=== PATIENT | female | born 1955 | race Caucasian/White ===

== ENCOUNTER 2019-07-04 16:52 | Emergency (ER) | payer MEDICARE ==
[2019-07-04] MEDS ORDERED: ANTIVERT 25 MG PO ONE (17:15)
[2019-07-04] MEDS ORDERED: Sodium Chloride 0.9% 1000 ML 1,000 ML IV STA (17:15)
[2019-07-04] MEDS ORDERED: ANTIVERT 25 MG ONE (17:26)
[2019-07-04] MEDS ORDERED: Sodium Chloride 0.9% 1000 ML 1,000 ML ONE (17:26)
[2019-07-04 17:38] LABS: BASOPHIL % 0.4 % (0.0-0.4); Basophil (Absolute #) 0.03 (0-0.4); Eosinophil % 2.6 % (0.00-5.0); Eosinophil (Absolute #) 0.19 (0-0.5); Granulocyte Absolute (ANC) 4.56 (1.4-6.9); Granulocytes % 63.6 % (36.0-66.0); Hematocrit 48.3 % (35-47); Hemoglobin 15.2 gm/dl (12.0-16.0); Lymphocyte (Absolute #) 1.86 (1.0-4.6); Lymphocytes % 25.9 % (24.0-44.0); Mean Cell Volume 87.8 fl (78-100); Mean Corpuscular Hemoglobin 27.6 pg (26-32); Mean Corpuscular Hgb Concent. 31.5 g/dl (32-36); Mean Platelet Volume 10.1 fl (6-9.5); Monocyte (Absolute #) 0.54 (0.0-1.3); Monocytes % 7.5 % (0.0-12.0); Platelet Count 191 K/mm3 (150-450); Red Cell Distribution Width 18.8 % (11.5-14.0); White Blood Count 7.2 K/mm3 (4.0-10.5)
[2019-07-04 17:51] LABS: ALBUMIN 4.1 g/dL (3.5-5.0); ANION GAP 12.5 MEQ/L (5-15); BILIRUBIN,TOTAL 0.6 mg/dL (0.2-1.3); Calcium 8.5 mg/dL (8.4-10.2); Creatinine 1 1.04 mg/dL (0.52-1.04); Potassium 4.5 mmol/L (3.5-5.1)
[2019-07-04 19:33] LABS: Appearance SLIGHTLY CLOUDY (CLEAR); Bilirubin NEGATIVE (NEGATIVE); Blood SMALL Ery/ul (0-5); Epithelial Cells FEW /HPF (FEW); Glucose NEGATIVE (NEGATIVE); Ketones NEGATIVE (NEGATIVE); Leukocyte Esterase LARGE (NEGATIVE); Nitrite POSITIVE (NEGATIVE); Protein,Urine Dip NEGATIVE (Negative); Specific Gravity 1.008 (1.005-1.025); Urobilinogen NEGATIVE mg/dL (0-1); WBC >100 /HPF (0-5)
[2019-07-04 19:35] LABS: Budding Yeast Few /HPF (NEGATIVE)
[2019-07-04 19:44] LABS: Amphetamine,Urine NEGATIVE (NEGATIVE); Barbiturate,Urine NEGATIVE (NEGATIVE); Benzodiazepine,Urine NEGATIVE (NEGATIVE); Cocaine,Urine NEGATIVE (NEGATIVE); Methadone,Urine NEGATIVE (NEGATIVE); Opiate,Urine NEGATIVE (NEGATIVE); PCP,Urine NEGATIVE (NEGATIVE); THC,Urine NEGATIVE (NEGATIVE)
[2019-07-04] MEDS ORDERED: ROCEPHIN 1 Gm-D5w 50 ml Bag** 1 G/50 ML IVPB IV ONE (19:53)
[2019-07-04] MEDS ORDERED: Cipro 500 MG PO ONE (20:06)
[2019-07-04] MEDS ORDERED: Cipro 500 MG ONE (20:08)
--- NOTE | 2019-07-04 20:23 | ERPHSYRPT ---
- History of Present Illness Source: patient Exam Limitations: no limitations Patient Subjective Stated Complaint: pt was sent over from drs office to be seen for chest pain, she states pain was yesterday and relieved by nitro, her only co is dizziness, she states she is off balance Triage Nursing Assessment: pt arrived per WC alert, resp easy,chest clear, edema to lower legs, skin w/d/p. Physician History: Pt is a 63 y/o female that was sent to the ED by her PCP, secondary to chest pain. Pt presented to the ED, denying chest pain, but complains of dizziness, and vertigo. Pt denies palpitations, and chest discomfort. No SOB or cough, No N/V/D or abdominal pain. Pt states, that took her Meclizine 12.5 in the morning but did not have any improvement. Pt felt dizzy and that everything is moving. No other complains. Timing/Duration: today Severity: mild Modifying Factors: Improves With: rest Associated Symptoms: denies symptoms Allergies/Adverse Reactions: cephalexin [From Keflex] Allergy (Verified 07/04/19 17:38) codeine Allergy (Verified 07/04/19 17:38) erythromycin base Allergy (Verified 07/04/19 17:38) metronidazole [From Flagyl] Allergy (Verified 07/04/19 17:38) nitrofurantoin [From Macrobid] Allergy (Verified 07/04/19 17:38) Home Medications: Albuterol 2.5 mg/3 ml Neb [Proventil 2.5 mg/3 ml Neb] 3 ml QID 07/04/19 [ History] Albuterol Sulfate [Proair Hfa] 2 puff BID 07/04/19 [History] Allopurinol 300 mg [Zyloprim 300 mg] 300 mg DAILY 07/04/19 [History] Amlodipine Besylate 5 mg [Norvasc 5 mg] 5 mg DAILY 07/04/19 [History] Amoxicillin/Potassium Clav [Augmentin 500-125 Tablet] 1 ea BID 07/04/19 [History ] Calcitriol 0.25 mg DAILY 07/04/19 [History] Calcium Carb, Gluconate/Vit D2 [Parva-Harsha 500 Tablet] 1 ea DAILY 07/04/19 [ History] Carvedilol [Coreg] 25 mg DAILY 07/04/19 [History] Cetirizine HCl [Zyrtec] 10 mg DAILY 07/04/19 [History] Duloxetine HCl [Cymbalta] 60 mg DAILY 07/04/19 [History] Esomeprazole Magnesium [Nexium] 40 mg DAILY 07/04/19 [History] Fluticasone Propionate [Flovent Hfa] 12 gm DAILY 07/04/19 [History] Gabapentin 300 mg TID 07/04/19 [History] Hydroxyzine HCl 10 mg BID 07/04/19 [History] Isosorbide Mononitrate 30 mg [Imdur 30 MG] 30 mg DAILY 07/04/19 [History] Levothyroxine Sodium [Synthroid] 137 mcg DAILY 07/04/19 [History] Losartan Potassium [Cozaar] 100 mg DAILY 07/04/19 [History] Meclizine HCl 25 mg [Antivert 25 mg] 12.5 mg BID 07/04/19 [History] Montelukast Sodium 10 mg [Singulair 10 MG] 10 mg DAILY 07/04/19 [History] Multivitamin [Multi-Vitamin Daily] 1 ea DAILY 07/04/19 [History] Potassium Citrate [Potassium Citrate ER] 10 meq DAILY 07/04/19 [History] Rosuvastatin Calcium 20 mg DAILY 07/04/19 [History] Hx Influenza Vaccination/Date Given: No Hx Pneumococcal Vaccination/Date Given: No Immunizations Up to Date: Yes - Review of Systems Constitutional: Malaise, No Fever, No Chills Eyes: No Symptoms Ears, Nose, & Throat: No Symptoms Respiratory: No Cough, No Dyspnea Cardiac: No Chest Pain, No Edema, No Syncope Abdominal/Gastrointestinal: No Abdominal Pain, No Nausea, No Vomiting, No Diarrhea Genitourinary Symptoms: No Dysuria Musculoskeletal: No Back Pain, No Neck Pain Neurological: Dizziness, Vertigo - Past Medical History Pertinent Past Medical History: Yes Cardiac History: High Cholesterol, Hypertension Respiratory History: COPD, Emphysema Endocrine Medical History: Hypothyroidism Musculoskeletal History: Arthritis GI Medical History: Diverticulitis, Other Psycho-Social History: Anxiety, Depression - Past Surgical History Past Surgical History: Yes Cardiac: Cardiac Catheterization Gastrointestinal: Cholecystectomy, Colon Resection Musculoskeletal: Orthopedic Surgery Other Surgical History: left shoulder,thyroid removed - Social History Smoking Status: Current every day smoker Exposure to second hand smoke: Yes Drug Use: none Patient Lives Alone: No - Female History Hx Last Menstrual Period: post Hx Now: No - Nursing Vital Signs Nursing Vital Signs: Initial Vital Signs Temperature 97.0 F 07/04/19 16:52 Pulse Rate 79 07/04/19 16:52 Respiratory Rate 16 07/04/19 16:52 Blood Pressure 102/69 07/04/19 16:52 O2 Sat by Pulse Oximetry 94 L 07/04/19 16:52 Pain Scale Pain Intensity 0 - Physical Exam General Appearance: no apparent distress, alert Eye Exam: PERRL/EOMI, eyes nml inspection Ears, Nose, Throat Exam: normal ENT inspection, TMs normal, pharynx normal, moist mucous membranes Neck Exam: normal inspection, non-tender, supple, full range of motion Respiratory Exam: normal breath sounds, lungs clear, No respiratory distress Cardiovascular Exam: regular rate/rhythm, normal heart sounds, normal peripheral pulses Gastrointestinal/Abdomen Exam: soft, normal bowel sounds, No tenderness, No mass Back Exam: normal inspection, normal range of motion, No CVA tenderness, No vertebral tenderness Extremity Exam: normal inspection, normal range of motion, pelvis stable Neurologic Exam: alert, oriented x 3, cooperative, normal mood/affect, nml cerebellar function, nml station & gait, sensation nml, No motor deficits SpO2: 89 - Course Nursing assessment & vital signs reviewed: Yes EKG Interpreted by Me: RATE (74bpm), Sinus Rhythm, NORMAL AXIS, NORMAL QRS, NORMAL ST-T Ordered Tests: Active Orders 24 hr Category Date Time Status IV Insertion STAT Care 07/04/19 17:15 Active CBC W DIFF Stat Lab 07/04/19 17:30 Completed CMP Stat Lab 07/04/19 17:30 Completed CULTURE,URINE Stat Lab 07/04/19 19:23 Received TROPONIN Q3H Lab 07/04/19 17:30 Completed TROPONIN Q3H Lab 07/04/19 20:15 Ordered TROPONIN Q3H Lab 07/04/19 23:15 Ordered TROPONIN Q3H Lab 07/05/19 02:15 Ordered TROPONIN Q3H Lab 07/05/19 05:15 Ordered UA W/RFX UR CULTURE Stat Lab 07/04/19 19:23 Completed Urine Triage Profile Stat Lab 07/04/19 19:23 Completed Medication Summary Discontinued Medications Generic Name Dose Route Start Last Admin Trade Name Jagdish PRN Reason Stop Dose Admin Ciprofloxacin 500 mg 07/04/19 20:06 07/04/19 20:09 Cipro 500 Mg PO 07/04/19 20:07 500 mg STAT ONE Administration Ciprofloxacin Confirm 07/04/19 20:08 Cipro 500 Mg Administered 07/04/19 20:09 Dose 500 mg .ROUTE .STK-MED ONE Sodium Chloride 1,000 mls @ 999 mls/hr 07/04/19 17:15 07/04/19 18:46 Sodium Chloride 0.9% 1000 Ml IV 07/04/19 18:15 Infused .Q1H1M STA Infusion Sodium Chloride Confirm 07/04/19 17:26 Sodium Chloride 0.9% 1000 Ml Administered 07/04/19 17:27 Dose 1,000 mls @ ud .ROUTE .STK-MED ONE Ceftriaxone Sodium/Dextrose Confirm 07/04/19 19:53 Rocephin 1 Gm-D5w 50 Ml Bag Administered 07/04/19 19:54 Dose 1 g in 50 mls @ ud IV .STK-MED ONE Meclizine HCl 25 mg 07/04/19 17:15 07/04/19 17:28 Antivert 25 Mg PO 07/04/19 17:16 25 mg STAT ONE Administration Meclizine HCl Confirm 07/04/19 17:26 Antivert 25 Mg Administered 07/04/19 17:27 Dose 25 mg .ROUTE .STK-MED ONE Lab/Rad Data: Laboratory Result Diagrams 07/04/19 17:30 07/04/19 17:30 Laboratory Results 07/04/19 07/04/19 07/04/19 Range/Units 19:23 19:23 17:30 WBC (4.0-10.5) K/mm3 RBC (4.1-5.4) M/mm3 Hgb (12.0-16.0) gm/dl Hct (35-47) % MCV (78-100) fl MCH (26-32) pg MCHC (32-36) g/dl RDW (11.5-14.0) % Plt Count (150-450) K/mm3 MPV (6-9.5) fl Gran % (36.0-66.0) % Eos # (Auto) (0-0.5) Absolute Lymphs (auto) (1.0-4.6) Absolute Monos (auto) (0.0-1.3) Lymphocytes % (24.0-44.0) % Monocytes % (0.0-12.0) % Eosinophils % (0.00-5.0) % Basophils % (0.0-0.4) % Absolute Granulocytes (1.4-6.9) Basophils # (0-0.4) Sodium (137-145) mmol/L Potassium (3.5-5.1) mmol/L Chloride (98-107) mmol/L Carbon Dioxide (22-30) mmol/L Anion Gap (5-15) MEQ/L BUN (7-17) mg/dL Creatinine (0.52-1.04) mg/dL Estimated GFR ML/MIN Glucose (74-106) mg/dL Calcium (8.4-10.2) mg/dL Total Bilirubin (0.2-1.3) mg/dL AST (14-36) U/L ALT (0-35) U/L Alkaline Phosphatase (38-126) U/L Troponin I < 0.012 (0.000-0.034) ng/mL Serum Total Protein (6.3-8.2) g/dL Albumin (3.5-5.0) g/dL Urine Color YELLOW (YELLOW) Urine Appearance SLIGHTLY CLOUDY (CLEAR) Urine pH 7.0 (5-6) Ur Specific [place] 1.008 (1.005-1.025) Urine Protein NEGATIVE (Negative) Urine Ketones NEGATIVE (NEGATIVE) Urine Blood SMALL (0-5) Jorge Luis/ul Urine Nitrite POSITIVE (NEGATIVE) Urine Bilirubin NEGATIVE (NEGATIVE) Urine Urobilinogen NEGATIVE (0-1) mg/dL Ur Leukocyte Esterase LARGE (NEGATIVE) Urine WBC (Auto) >100 (0-5) /HPF Urine RBC (Auto) 11-15 (0-2) /HPF U Epithel Cells (Auto) FEW (FEW) /HPF Urine Bacteria (Auto) NONE (NEGATIVE) /HPF Unidentified Crystals 2-5 (NEGATIVE) /HPF Urine Yeast (Budding) Few (NEGATIVE) /HPF Urine Culture Reflexed YES (NO) Urine Glucose NEGATIVE (NEGATIVE) mg/dL Urine Opiates Level NEGATIVE (NEGATIVE) Ur Methadone NEGATIVE (NEGATIVE) Urine Barbiturates NEGATIVE (NEGATIVE) Ur Phencyclidine (PCP) NEGATIVE (NEGATIVE) Urine Amphetamine NEGATIVE (NEGATIVE) U Benzodiazepine Level NEGATIVE (NEGATIVE) Urine Cocaine NEGATIVE (NEGATIVE) Urine Marijuana (THC) NEGATIVE (NEGATIVE) 07/04/19 07/04/19 Range/Units 17:30 17:30 WBC 7.2 (4.0-10.5) K/mm3 RBC 5.50 H (4.1-5.4) M/mm3 Hgb 15.2 (12.0-16.0) gm/dl Hct 48.3 H (35-47) % MCV 87.8 (78-100) fl MCH 27.6 (26-32) pg MCHC 31.5 L (32-36) g/dl RDW 18.8 H (11.5-14.0) % Plt Count 191 (150-450) K/mm3 MPV 10.1 H (6-9.5) fl Gran % 63.6 (36.0-66.0) % Eos # (Auto) 0.19 (0-0.5) Absolute Lymphs (auto) 1.86 (1.0-4.6) Absolute Monos (auto) 0.54 (0.0-1.3) Lymphocytes % 25.9 (24.0-44.0) % Monocytes % 7.5 (0.0-12.0) % Eosinophils % 2.6 (0.00-5.0) % Basophils % 0.4 (0.0-0.4) % Absolute Granulocytes 4.56 (1.4-6.9) Basophils # 0.03 (0-0.4) Sodium 140 (137-145) mmol/L Potassium 4.5 (3.5-5.1) mmol/L Chloride 105 (98-107) mmol/L Carbon Dioxide 28 (22-30) mmol/L Anion Gap 12.5 (5-15) MEQ/L BUN 17 (7-17) mg/dL Creatinine 1.04 (0.52-1.04) mg/dL Estimated GFR 57.3 ML/MIN Glucose 92 (74-106) mg/dL Calcium 8.5 (8.4-10.2) mg/dL Total Bilirubin 0.60 (0.2-1.3) mg/dL AST 41 H (14-36) U/L ALT 25 (0-35) U/L Alkaline Phosphatase 85 (38-126) U/L Troponin I (0.000-0.034) ng/mL Serum Total Protein 8.0 (6.3-8.2) g/dL Albumin 4.1 (3.5-5.0) g/dL Urine Color (YELLOW) Urine Appearance (CLEAR) Urine pH (5-6) Ur Specific [place] (1.005-1.025) Urine Protein (Negative) Urine Ketones (NEGATIVE) Urine Blood (0-5) Jorge Luis/ul Urine Nitrite (NEGATIVE) Urine Bilirubin (NEGATIVE) Urine Urobilinogen (0-1) mg/dL Ur Leukocyte Esterase (NEGATIVE) Urine WBC (Auto) (0-5) /HPF Urine RBC (Auto) (0-2) /HPF U Epithel Cells (Auto) (FEW) /HPF Urine Bacteria (Auto) (NEGATIVE) /HPF Unidentified Crystals (NEGATIVE) /HPF Urine Yeast (Budding) (NEGATIVE) /HPF Urine Culture Reflexed (NO) Urine Glucose (NEGATIVE) mg/dL Urine Opiates Level (NEGATIVE) Ur Methadone (NEGATIVE) Urine Barbiturates (NEGATIVE) Ur Phencyclidine (PCP) (NEGATIVE) Urine Amphetamine (NEGATIVE) U Benzodiazepine Level (NEGATIVE) Urine Cocaine (NEGATIVE) Urine Marijuana (THC) (NEGATIVE) - Progress Progress: improved Progress Note: 07/04/19 20:23 Pt was seen and examined. She did get a liter of IVF. Meclizine 25mg was given. Pt was feeling better and was able to ambulate. Labs were normal, but UA showed UTI. Cipro was given PO, and pt will get a prescription to continue taking for 7 days. Pt should f/u with her PCP, and keep herself well hydrated. Will see patient in: office Counseled pt/family regarding: need for follow-up - Departure Departure Disposition: Home Clinical Impression: UTI (urinary tract infection) Condition: Stable Critical Care Time: No Referrals: ELOY JEREZ [Primary Care Provider] - Additional Instructions: Finish ABX as [id number], drink plenty of fluids, and f/u with PCP. Prescriptions: Ciprofloxacin [Cipro 500 MG] 500 mg PO BIDAC #13 tablet
[2019-07-04 20:30] VITALS: BP 107/75; PULSE 94; O2SAT 97
== END 2019-07-04 20:35 | disposition home or self-care (01) ==
LOC: ED 16:52
DX: N39.0 Urinary tract infection, site not specified (principal)
CPT/HCPCS: 36000; 36415; 80053; 80307; 81001; 84484; 85025; 87086; 96360; 96374; 99284; J0696; A9270-GY

== ENCOUNTER 2019-10-15 08:04 | Emergency (ER) | payer MEDICARE ==
--- NOTE | 2019-10-15 08:58 | ERPHSYRPT ---
- History of Present Illness Time Seen by Provider: 10/15/19 08:25 Source: patient Exam Limitations: no limitations Patient Subjective Stated Complaint: PATIENT WAS IN SLEEP LAB AT [facility] AND BROUGHT OVER BY RESPIRATORY. PATIENT AND RT STATED PATIENT COMPLAINING OF BEING DIZZY WITH N/V. RT STATED PATIENT WAS ON C-PAP THROUGHOUT NOC AND 02 RAN IN 80% MOST OF NIGHT. Triage Nursing Assessment: PATIENT BROUGHT OVER BY RT. PATIENT OVERALL COLOR PALE. SKIN WARM. NO EDEMA NOTED IN BILATERAL LOWER EXTREMITIES. PATIENT WITH WHEEZES THROUGHOUT ALL LUNG GRIFFITH AND BASES. 02 RUNNING BETWEEN 88-92% WITH 02 AT 3L. PATIENT DENIES SOB. PATIENT WITH NO DEPENDENT EDEMA NOTED. CAP REFILL LESS THAN 3 SECONDS. Physician History: 63 y/o obese white female who has a h/o copd, htn, anxiety presents with sudden onset of dizziness first then n/v. pt has copd and was undergoing a sleep study last night here at hospital until this am. part of the study performed without oxygen and latter part of study with her oxygen. study completed and at time of discharge pt became dizzy then vomiting began. similar episode June 2019. tx with meclizine which helped.[pt denies head injury, denies cp, denies new soa, denies abd pain. Timing/Duration: today Severity: moderate Associated Symptoms: nausea, vomiting, other (dizziness), No abdominal pain, No shortness of breath, No chest pain Allergies/Adverse Reactions: cephalexin [From Keflex] Allergy (Verified 10/15/19 08:24) codeine Allergy (Verified 10/15/19 08:24) erythromycin base Allergy (Verified 10/15/19 08:24) metronidazole [From Flagyl] Allergy (Verified 10/15/19 08:24) nitrofurantoin [From Macrobid] Allergy (Verified 10/15/19 08:24) Home Medications: Albuterol 2.5 mg/3 ml Neb [Proventil 2.5 mg/3 ml Neb] 3 ml QID 07/04/19 [ History] Albuterol Sulfate [Proair Hfa] 2 puff BID 07/04/19 [History] Allopurinol 300 mg [Zyloprim 300 mg] 300 mg DAILY 07/04/19 [History] Amlodipine Besylate 5 mg [Norvasc 5 mg] 5 mg DAILY 07/04/19 [History] Amoxicillin/Potassium Clav [Augmentin 500-125 Tablet] 1 ea BID 07/04/19 [History ] Calcitriol 0.25 mg DAILY 07/04/19 [History] Calcium Carb, Gluconate/Vit D2 [Parva-Harsha 500 Tablet] 1 ea DAILY 07/04/19 [ History] Carvedilol [Coreg] 25 mg DAILY 07/04/19 [History] Cetirizine HCl [Zyrtec] 10 mg DAILY 07/04/19 [History] Duloxetine HCl [Cymbalta] 60 mg DAILY 07/04/19 [History] Esomeprazole Magnesium [Nexium] 40 mg DAILY 07/04/19 [History] Fluticasone Propionate [Flovent Hfa] 12 gm DAILY 07/04/19 [History] Hydroxyzine HCl 10 mg BID 07/04/19 [History] Isosorbide Mononitrate 30 mg [Imdur 30 MG] 30 mg DAILY 07/04/19 [History] Levothyroxine Sodium [Synthroid] 137 mcg DAILY 07/04/19 [History] Losartan Potassium [Cozaar] 100 mg DAILY 07/04/19 [History] Montelukast Sodium 10 mg [Singulair 10 MG] 10 mg DAILY 07/04/19 [History] Multivitamin [Multi-Vitamin Daily] 1 ea DAILY 07/04/19 [History] Potassium Citrate [Potassium Citrate ER] 10 meq DAILY 07/04/19 [History] Rosuvastatin Calcium 20 mg DAILY 07/04/19 [History] Hx Tetanus, Diphtheria Vaccination/Date Given: No Hx Influenza Vaccination/Date Given: Yes Hx Pneumococcal Vaccination/Date Given: No - Review of Systems Constitutional: No Symptoms Eyes: No Symptoms Ears, Nose, & Throat: No Symptoms Respiratory: No Symptoms Cardiac: No Symptoms Abdominal/Gastrointestinal: Nausea, Vomiting Genitourinary Symptoms: No Symptoms Musculoskeletal: No Symptoms Skin: No Symptoms Neurological: Dizziness Psychological: No Symptoms Endocrine: No Symptoms Hematologic/Lymphatic: No Symptoms Immunological/Allergic: No Symptoms All Other Systems: Reviewed and Negative - Past Medical History Pertinent Past Medical History: Yes Neurological History: No Pertinent History Cardiac History: High Cholesterol, Hypertension Respiratory History: COPD, Emphysema Endocrine Medical History: Hypothyroidism Musculoskeletal History: Arthritis GI Medical History: Diverticulitis, Other History: No Pertinent History Psycho-Social History: Anxiety, Depression Female Reproductive Disorders: No Pertinent History - Past Surgical History Past Surgical History: Yes Neuro Surgical History: Neurological Surgery Cardiac: Cardiac Catheterization Respiratory: Lobectomy Gastrointestinal: Cholecystectomy, Colon Resection Genitourinary: Kidney Transplant Musculoskeletal: Orthopedic Surgery Female Surgical History: Tubal Ligation Other Surgical History: left shoulder,thyroid removed - Social History Smoking Status: Current every day smoker How long have you smoked: 50 YEARS Exposure to second hand smoke: Yes Drug Use: none Patient Lives Alone: No - Nursing Vital Signs Nursing Vital Signs: Initial Vital Signs Temperature 96.5 F 10/15/19 08:09 Pulse Rate 64 10/15/19 08:09 Respiratory Rate 18 10/15/19 08:09 Blood Pressure 151/72 10/15/19 08:09 O2 Sat by Pulse Oximetry 91 L 10/15/19 08:09 Pain Scale Pain Intensity 0 - Physical Exam General Appearance: moderate distress, alert, anxiety, obese Eye Exam: PERRL/EOMI, eyes nml inspection Ears, Nose, Throat Exam: normal ENT inspection, moist mucous membranes Neck Exam: normal inspection, non-tender, supple, full range of motion Respiratory Exam: normal breath sounds, lungs clear, airway intact, No chest tenderness, No respiratory distress Cardiovascular Exam: regular rate/rhythm, normal heart sounds, normal peripheral pulses Gastrointestinal/Abdomen Exam: soft, normal bowel sounds, No tenderness Pelvic Exam: not done Rectal Exam: not done Back Exam: normal inspection, normal range of motion, No CVA tenderness, No vertebral tenderness Extremity Exam: normal inspection, normal range of motion, pelvis stable Neurologic Exam: alert, oriented x 3, cooperative, bull fiddle player II-XII nml as tested Skin Exam: normal color, warm, dry Lymphatic Exam: adenopathy SpO2 Interpretation: normal SpO2: 91 O2 Delivery: Room Air - Course Nursing assessment & vital signs reviewed: Yes EKG Interpreted by Me: RATE (65), Sinus Rhythm, NORMAL AXIS, NORMAL INTERVALS, NORMAL QRS, Other (nl axis today. no other changes when compared to EKG dated ) Ordered Tests: Active Orders 24 hr Category Date Time Status Clean Catch Urine Specimen STAT Care 10/15/19 10:59 Active EKG-ER Only STAT Care 10/15/19 09:02 Active EKG-ER Only STAT Care 10/15/19 12:11 Active IV Insertion STAT Care 10/15/19 09:02 Active CHEST 1 VIEW (PORTABLE) Stat Exams 10/15/19 09:02 Taken HEAD WITHOUT CONTRAST [CT] Stat Exams 10/15/19 09:03 Taken CBC W DIFF Stat Lab 10/15/19 09:00 Completed CMP Stat Lab 10/15/19 09:00 Completed CULTURE,URINE Stat Lab 10/15/19 11:00 Received TROPONIN Q3H Lab 10/15/19 09:00 Completed TROPONIN Q3H Lab 10/15/19 12:14 Completed TROPONIN Q3H Lab 10/15/19 15:15 Ordered TROPONIN Q3H Lab 10/15/19 18:15 Ordered TROPONIN Q3H Lab 10/15/19 21:15 Ordered TSH [TSH, 3RD Generation] Stat Lab 10/15/19 09:00 Completed UA W/RFX UR CULTURE Stat Lab 10/15/19 11:00 Completed Medication Summary Generic Name Dose Route Start Last Admin Trade Name Freq PRN Reason Stop Dose Admin Levofloxacin/Dextrose 750 mg in 150 mls @ 100 mls/hr 10/15/19 12:08 10/15/19 12:21 Levofloxacin 750mg/150ml D5w IV 10/15/19 13:37 100 ml/hr STAT STA 100 mls/hr Administration Discontinued Medications Generic Name Dose Route Start Last Admin Trade Name Freq PRN Reason Stop Dose Admin Sodium Chloride 1,000 mls @ 999 mls/hr 10/15/19 09:02 10/15/19 10:45 Sodium Chloride 0.9% 1000 Ml IV 10/15/19 10:02 Infused .Q1H1M STA Infusion Sodium Chloride Confirm 10/15/19 09:17 Sodium Chloride 0.9% 1000 Ml Administered 10/15/19 09:18 Dose 1,000 mls @ ud .ROUTE .STK-MED ONE Levofloxacin/Dextrose Confirm 10/15/19 12:12 Levofloxacin 750mg/150ml D5w Administered 10/15/19 12:13 Dose 750 mg in 150 mls @ ud IV .STK-MED ONE Promethazine HCl 12.5 mg 10/15/19 09:02 10/15/19 09:31 Phenergan 25 Mg Inj IM 10/15/19 09:03 12.5 mg STAT ONE Administration Promethazine HCl Confirm 10/15/19 09:17 Phenergan 25 Mg Inj Administered 10/15/19 09:18 Dose 25 mg .ROUTE .STK-MED ONE Lab/Rad Data: Laboratory Result Diagrams 10/15/19 09:00 10/15/19 09:00 Laboratory Results 10/15/19 10/15/19 10/15/19 Range/Units 12:14 11:00 09:00 WBC (4.0-10.5) K/mm3 RBC (4.1-5.4) M/mm3 Hgb (12.0-16.0) gm/dl Hct (35-47) % MCV (78-100) fl MCH (26-32) pg MCHC (32-36) g/dl RDW (11.5-14.0) % Plt Count (150-450) K/mm3 MPV (6-9.5) fl Gran % (36.0-66.0) % Eos # (Auto) (0-0.5) Absolute Lymphs (auto) (1.0-4.6) Absolute Monos (auto) (0.0-1.3) Lymphocytes % (24.0-44.0) % Monocytes % (0.0-12.0) % Eosinophils % (0.00-5.0) % Basophils % (0.0-0.4) % Absolute Granulocytes (1.4-6.9) Basophils # (0-0.4) Sodium (137-145) mmol/L Potassium (3.5-5.1) mmol/L Chloride (98-107) mmol/L Carbon Dioxide (22-30) mmol/L Anion Gap (5-15) MEQ/L BUN (7-17) mg/dL Creatinine (0.52-1.04) mg/dL Estimated GFR ML/MIN Glucose (74-106) mg/dL Calcium (8.4-10.2) mg/dL Total Bilirubin (0.2-1.3) mg/dL AST (14-36) U/L ALT (0-35) U/L Alkaline Phosphatase (38-126) U/L Troponin I 0.058 H* 0.093 H* (0.000-0.034) ng/mL Serum Total Protein (6.3-8.2) g/dL Albumin (3.5-5.0) g/dL TSH 3rd Generation (0.47-4.68) mIU/L Urine Color YELLOW (YELLOW) Urine Appearance CLOUDY (CLEAR) Urine pH 6.0 (5-6) Ur Specific [place] 1.012 (1.005-1.025) Urine Protein 30 (Negative) Urine Ketones NEGATIVE (NEGATIVE) Urine Blood NEGATIVE (0-5) Jorge Luis/ul Urine Nitrite POSITIVE (NEGATIVE) Urine Bilirubin NEGATIVE (NEGATIVE) Urine Urobilinogen NEGATIVE (0-1) mg/dL Ur Leukocyte Esterase LARGE (NEGATIVE) Urine WBC (Auto) >100 (0-5) /HPF Urine RBC (Auto) 11-15 (0-2) /HPF U Hyaline Cast (Auto) 3-5 (0-2) /LPF U Epithel Cells (Auto) MODERATE (FEW) /HPF Urine Bacteria (Auto) MANY (NEGATIVE) /HPF Urine Mucus (Auto) SLIGHT (NEGATIVE) /HPF Urine Culture Reflexed YES (NO) Urine Glucose NEGATIVE (NEGATIVE) mg/dL Slides for Path Review 10/15/19 10/15/19 10/15/19 Range/Units 09:00 09:00 09:00 WBC 7.5 (4.0-10.5) K/mm3 RBC 6.11 H (4.1-5.4) M/mm3 Hgb 15.3 (12.0-16.0) gm/dl Hct 50.6 H (35-47) % MCV 82.8 (78-100) fl MCH 25.0 L (26-32) pg MCHC 30.2 L (32-36) g/dl RDW 21.7 H (11.5-14.0) % Plt Count 162 (150-450) K/mm3 MPV 10.0 H (6-9.5) fl Gran % 69.1 H (36.0-66.0) % Eos # (Auto) 0.15 (0-0.5) Absolute Lymphs (auto) 1.53 (1.0-4.6) Absolute Monos (auto) 0.57 (0.0-1.3) Lymphocytes % 20.5 L (24.0-44.0) % Monocytes % 7.6 (0.0-12.0) % Eosinophils % 2.0 (0.00-5.0) % Basophils % 0.8 (0.0-0.4) % Absolute Granulocytes 5.17 (1.4-6.9) Basophils # 0.06 (0-0.4) Sodium 143 (137-145) mmol/L Potassium 4.2 (3.5-5.1) mmol/L Chloride 97 L (98-107) mmol/L Carbon Dioxide 34 H (22-30) mmol/L Anion Gap 16.3 H (5-15) MEQ/L BUN 23 H (7-17) mg/dL Creatinine 1.18 H (0.52-1.04) mg/dL Estimated GFR 49.5 ML/MIN Glucose 154 H (74-106) mg/dL Calcium 8.1 L (8.4-10.2) mg/dL Total Bilirubin 0.60 (0.2-1.3) mg/dL AST 44 H (14-36) U/L ALT 27 (0-35) U/L Alkaline Phosphatase 85 (38-126) U/L Troponin I (0.000-0.034) ng/mL Serum Total Protein 8.1 (6.3-8.2) g/dL Albumin 4.2 (3.5-5.0) g/dL TSH 3rd Generation 6.230 H (0.47-4.68) mIU/L Urine Color (YELLOW) Urine Appearance (CLEAR) Urine pH (5-6) Ur Specific [place] (1.005-1.025) Urine Protein (Negative) Urine Ketones (NEGATIVE) Urine Blood (0-5) Jorge Luis/ul Urine Nitrite (NEGATIVE) Urine Bilirubin (NEGATIVE) Urine Urobilinogen (0-1) mg/dL Ur Leukocyte Esterase (NEGATIVE) Urine WBC (Auto) (0-5) /HPF Urine RBC (Auto) (0-2) /HPF U Hyaline Cast (Auto) (0-2) /LPF U Epithel Cells (Auto) (FEW) /HPF Urine Bacteria (Auto) (NEGATIVE) /HPF Urine Mucus (Auto) (NEGATIVE) /HPF Urine Culture Reflexed (NO) Urine Glucose (NEGATIVE) mg/dL Slides for Path Review YES - Progress Progress: improved, re-examined Progress Note: 10/15/19 12:11 ct head-no acute abnormality pt states she is feeling better. denies cp. 10/15/19 13:[address] Meraz, marketing operations manager covering for dr. Manriquez out of [place] at 1040. i reviewed pt hx, condition, lab xray and ekg results. dr. meraz wanted a repeat 3 hour troponin. if lower or normal pt could be discharged to home. pt denies chest pain now. repeat ekg shows no acute ischemia. repeat troponin has dropped to 0.058. i spoke with dr. meraz at 1240 and he states pt may be discharged to home. follow up with dr. le office tomorrow morning by phone to arrange an appt. i spoke with pt and her spouse and they agree with this plan. Counseled pt/family regarding: lab results, diagnosis, rad results - Departure Departure Disposition: Home Clinical Impression: Dizziness, UTI (urinary tract infection), Elevated troponin Condition: Stable Critical Care Time: No Referrals: BEAU JEREZ MD [Primary Care Provider] - Additional Instructions: drink plenty of fluids. call Mary Girard and Declan to make them aware of her visit in this ED today and to arrange follow up appointment. return to ED if symptoms worsen Prescriptions: Ciprofloxacin [Cipro 500 MG] 500 mg PO BID #14 tablet
[2019-10-15] MEDS ORDERED: Sodium Chloride 0.9% 1000 ML 1,000 ML IV STA (09:02)
[2019-10-15] MEDS ORDERED: Phenergan 25 MG INJ IM ONE (09:02)
[2019-10-15 09:11] LABS: Absolute Neutrophil Ct (ANC) 5.17 (1.4-6.9); BASOPHIL % 0.8 % (0.0-0.4); Basophil (Absolute #) 0.06 (0-0.4); Eosinophil (Absolute #) 0.15 (0-0.5); Hematocrit 50.6 % (35-47); Hemoglobin 15.3 gm/dl (12.0-16.0); Lymphocyte (Absolute #) 1.53 (1.0-4.6); Lymphocytes % 20.5 % (24.0-44.0); Mean Cell Volume 82.8 fl (78-100); Mean Corpuscular Hgb Concent. 30.2 g/dl (32-36); Monocyte (Absolute #) 0.57 (0.0-1.3); Monocytes % 7.6 % (0.0-12.0); Neutrophil % 69.1 % (36.0-66.0); Platelet Count 162 K/mm3 (150-450); Red Blood Count 6.11 M/mm3 (4.1-5.4); Red Cell Distribution Width 21.7 % (11.5-14.0); White Blood Count 7.5 K/mm3 (4.0-10.5)
[2019-10-15] MEDS ORDERED: Sodium Chloride 0.9% 1000 ML 1,000 ML ONE (09:17)
[2019-10-15] MEDS ORDERED: Phenergan 25 MG INJ ONE (09:17)
[2019-10-15 09:25] LABS: ALBUMIN 4.2 g/dL (3.5-5.0); ANION GAP 16.3 MEQ/L (5-15); BILIRUBIN,TOTAL 0.6 mg/dL (0.2-1.3); Calcium 8.1 mg/dL (8.4-10.2); Creatinine 1 1.18 mg/dL (0.52-1.04); Potassium 4.2 mmol/L (3.5-5.1); Total Protein 8.1 g/dL (6.3-8.2)
[2019-10-15 09:49] LABS: Slide Review 1 YES
[2019-10-15 11:34] LABS: Appearance CLOUDY (CLEAR); Bacteria MANY /HPF (NEGATIVE); Bilirubin NEGATIVE (NEGATIVE); Blood NEGATIVE Ery/ul (0-5); Epithelial Cells MODERATE /HPF (FEW); Glucose NEGATIVE (NEGATIVE); Ketones NEGATIVE (NEGATIVE); Leukocyte Esterase LARGE (NEGATIVE); Mucus SLIGHT /HPF (NEGATIVE); Nitrite POSITIVE (NEGATIVE); Protein,Urine Dip 30 (Negative); Specific Gravity 1.012 (1.005-1.025); Urobilinogen NEGATIVE mg/dL (0-1); WBC >100 /HPF (0-5)
[2019-10-15] MEDS ORDERED: LEVOFLOXACIN 750MG/150ML D5W 750 MG/150 ML BAG IV STA (12:08)
[2019-10-15 12:12] VITALS: O2SAT 91
[2019-10-15] MEDS ORDERED: LEVOFLOXACIN 750MG/150ML D5W 750 MG/150 ML BAG IV ONE (12:12)
[2019-10-15 13:13] VITALS: BP 134/84; PULSE 83
--- NOTE | 2019-10-15 20:40 | XRAY ---
Indication: Dizziness. Multiple contiguous axial images obtained through the head without contrast. Comparison: None Normal appearing brain parenchyma, ventricles, and bony calvarium. Visualized paranasal sinuses and mastoid air cells are clear. Impression: Normal CT head without contrast exam. Comment: Preliminary interpretation was made by [facility]. No discrepancy. CTDI 56.14
--- NOTE | 2019-10-15 20:40 | XRAY ---
Indication: Short of breath. Comparison: None Portable chest demonstrates prominent interstitial lung markings presumed chronic. No focal infiltrate, consolidation, or large effusion. Heart is not enlarged for AP portable technique. Bony thorax intact with mild degenerative changes and tiny right humeral head bone island. Impression: Nonacute chest with chronic features.
== END 2019-10-15 14:13 | disposition home or self-care (01) ==
LOC: ED 08:04
DX: R42 Dizziness and giddiness (principal); N39.0 Urinary tract infection, site not specified; R74.8 Abnormal levels of other serum enzymes; Z79.899 Other long term (current) drug therapy; I10 Essential (primary) hypertension; J44.9 Chronic obstructive pulmonary disease, unspecified; E78.00 Pure hypercholesterolemia, unspecified; E03.9 Hypothyroidism, unspecified; Z90.49 Acquired absence of other specified parts of digestive tract; Z72.0 Tobacco use
CPT/HCPCS: 36000; 36415; 70450; 71045; 80053; 81001; 84443; 84484; 85025; 87077; 87086; 87186; 93005; 96360; 96365; 96372; 96374; 99285; J1956; J2550

== ENCOUNTER 2019-11-06 21:25 | Emergency (ER) | payer MEDICARE ==
[2019-11-06] MEDS ORDERED: Calcium Gluconate 10% 1000 MG IV ONE ×2 (22:06→22:21)
[2019-11-06] MEDS ORDERED: Sodium Chloride 0.9% 50 ML IV ONE (22:26)
[2019-11-06 23:33] LABS: INFLUENZA A NEGATIVE (NEGATIVE); INFLUENZA B NEGATIVE (NEGATIVE); RESPIRATORY SYNCTIAL VIRUS NEGATIVE (Negative)
[2019-11-07] MEDS ORDERED: Calcium Gluconate 10% 1000 MG IV ONE ×3 (00:12→00:35)
[2019-11-07] MEDS ORDERED: Sodium Chloride 0.9% 100 ML IVPB 100 ML IV ONE (00:41)
--- NOTE | 2019-11-07 02:34 | ERPHSYRPT ---
- History of Present Illness Time Seen by Provider: 11/06/19 21:50 Patient Subjective Stated Complaint: pt states that she just left the hospital from getting labs drawn, pt states that pcp call her and told her to go to the er, pt states that she has been feeling tired since wednesday, pt states that she just felt bad, pt states that she had tingling on her face Triage Nursing Assessment: pt ambulated into the er, pt is axo x4, pt is on 3L NC, pt has expiratory wheezing in upper lowers, vitals wnl, pt c/o intermitten numbness on face Physician History: Dr. Matrínez as that we see this patient in the emergency room after was discovered on routine blood work this afternoon that her calcium was 7.1. She is followed by Dr. Michael Emanuel product technician in [place]. She had a thyroidectomy many years ago and has had episodes of hypo-calcium since. Timing/Duration: today, gradual onset Severity: mild Modifying Factors: Improves With: nothing Associated Symptoms: weakness, other (paresthesias around the mouth and the fingers) Allergies/Adverse Reactions: cephalexin [From Keflex] Allergy (Verified 11/06/19 21:53) codeine Allergy (Verified 11/06/19 21:53) erythromycin base Allergy (Verified 11/06/19 21:53) metronidazole [From Flagyl] Allergy (Verified 11/06/19 21:53) nitrofurantoin [From Macrobid] Allergy (Verified 11/06/19 21:53) Home Medications: Albuterol 2.5 mg/3 ml Neb [Proventil 2.5 mg/3 ml Neb] 3 ml QID 07/04/19 [ History] Albuterol Sulfate [Proair Hfa] 2 puff BID 07/04/19 [History] Allopurinol 300 mg [Zyloprim 300 mg] 300 mg DAILY 07/04/19 [History] Amlodipine Besylate 5 mg [Norvasc 5 mg] 5 mg DAILY 07/04/19 [History] Calcitriol 0.25 mg DAILY 07/04/19 [History] Calcium Carb, Gluconate/Vit D2 [Parva-Harsha 500 Tablet] 1 ea DAILY 07/04/19 [ History] Carvedilol [Coreg] 25 mg DAILY 07/04/19 [History] Cetirizine HCl [Zyrtec] 10 mg DAILY 07/04/19 [History] Duloxetine HCl [Cymbalta] 60 mg DAILY 07/04/19 [History] Esomeprazole Magnesium [Nexium] 40 mg DAILY 07/04/19 [History] Fluticasone Propionate [Flovent Hfa] 12 gm DAILY 07/04/19 [History] Hydroxyzine HCl 10 mg BID 07/04/19 [History] Isosorbide Mononitrate 30 mg [Imdur 30 MG] 30 mg DAILY 07/04/19 [History] Levothyroxine Sodium [Synthroid] 137 mcg DAILY 07/04/19 [History] Losartan Potassium [Cozaar] 100 mg DAILY 07/04/19 [History] Montelukast Sodium 10 mg [Singulair 10 MG] 10 mg DAILY 07/04/19 [History] Multivitamin [Multi-Vitamin Daily] 1 ea DAILY 07/04/19 [History] Potassium Citrate [Potassium Citrate ER] 10 meq DAILY 07/04/19 [History] Rosuvastatin Calcium 20 mg DAILY 07/04/19 [History] Hx Tetanus, Diphtheria Vaccination/Date Given: No Hx Influenza Vaccination/Date Given: Yes Hx Pneumococcal Vaccination/Date Given: No - Review of Systems Constitutional: Fatigue, No Fever, No Chills Eyes: No Symptoms Ears, Nose, & Throat: No Symptoms Respiratory: No Cough, No Dyspnea Cardiac: No Chest Pain, No Edema, No Syncope Abdominal/Gastrointestinal: No Abdominal Pain, No Nausea, No Vomiting, No Diarrhea Genitourinary Symptoms: No Dysuria Musculoskeletal: No Back Pain, No Neck Pain Skin: No Rash Neurological: Parasthesia, No Dizziness, No Focal Weakness, No Sensory Changes Psychological: No Symptoms Endocrine: No Symptoms All Other Systems: Reviewed and Negative - Past Medical History Pertinent Past Medical History: Yes Neurological History: No Pertinent History Cardiac History: High Cholesterol, Hypertension Respiratory History: COPD, Emphysema Endocrine Medical History: Diabetes Type II, Hypothyroidism Musculoskeletal History: Arthritis GI Medical History: Diverticulitis, Other History: No Pertinent History Psycho-Social History: Anxiety, Depression Female Reproductive Disorders: No Pertinent History - Past Surgical History Past Surgical History: Yes Neuro Surgical History: Neurological Surgery Cardiac: Cardiac Catheterization Respiratory: Lobectomy Gastrointestinal: Cholecystectomy, Colon Resection Genitourinary: Kidney Transplant Musculoskeletal: Orthopedic Surgery Female Surgical History: Tubal Ligation Other Surgical History: left shoulder,thyroid removed - Social History Smoking Status: Current every day smoker How long have you smoked: 50 YEARS Exposure to second hand smoke: Yes Drug Use: none Patient Lives Alone: No - Female History Hx Now: No - Nursing Vital Signs Nursing Vital Signs: Initial Vital Signs Temperature 97.4 F 11/06/19 21:40 Pulse Rate 79 11/06/19 21:40 Respiratory Rate 24 11/06/19 21:40 Blood Pressure 141/86 11/06/19 21:40 O2 Sat by Pulse Oximetry 95 11/06/19 21:40 Pain Scale Pain Intensity 0 - Physical Exam General Appearance: no apparent distress, alert Eye Exam: PERRL/EOMI, eyes nml inspection Ears, Nose, Throat Exam: normal ENT inspection, TMs normal, pharynx normal, moist mucous membranes Neck Exam: normal inspection, non-tender, supple, full range of motion Respiratory Exam: normal breath sounds, lungs clear, No respiratory distress Cardiovascular Exam: regular rate/rhythm, normal heart sounds, normal peripheral pulses Gastrointestinal/Abdomen Exam: soft, normal bowel sounds, No tenderness, No mass Back Exam: normal inspection, normal range of motion, No CVA tenderness, No vertebral tenderness Extremity Exam: normal inspection, normal range of motion, pelvis stable Neurologic Exam: alert, oriented x 3, cooperative, normal mood/affect, nml cerebellar function, nml station & gait, sensation nml, No motor deficits Skin Exam: normal color, warm, dry, No rash Lymphatic Exam: No adenopathy SpO2: 93 - Course Nursing assessment & vital signs reviewed: Yes EKG Interpreted by Me: RATE (78), Sinus Rhythm, NORMAL AXIS, NORMAL INTERVALS, Non-specific ST Changes Ordered Tests: Active Orders 24 hr Category Date Time Status EKG-ER Only STAT Care 11/06/19 21:41 Active Calcium Stat Lab 11/06/19 23:32 Completed Calcium Stat Lab 11/07/19 02:11 Completed PHOSPHOROUS Stat Lab 11/06/19 22:20 Completed TROPONIN Q3H Lab 11/06/19 22:20 Completed Medication Summary Generic Name Dose Route Start Last Admin Trade Name Freq PRN Reason Stop Dose Admin Sodium Chloride 100 ml 11/06/19 22:26 Sodium Chloride 0.9% 50 Ml IV 11/06/19 22:27 STAT ONE Discontinued Medications Generic Name Dose Route Start Last Admin Trade Name Jagdish PRN Reason Stop Dose Admin Calcium Gluconate 1,000 mg 11/06/19 22:06 11/06/19 22:31 Calcium Gluconate 10% 1000 Mg IV 11/06/19 22:07 1,000 mg STAT ONE Administration Calcium Gluconate Confirm 11/06/19 22:21 Calcium Gluconate 10% 1000 Mg Administered 11/06/19 22:22 Dose 1,000 mg IV .STK-MED ONE Calcium Gluconate 2,000 mg 11/07/19 00:12 11/07/19 00:45 Calcium Gluconate 10% 1000 Mg IV 11/07/19 00:13 2,000 mg STAT ONE Administration Calcium Gluconate Confirm 11/07/19 00:16 Calcium Gluconate 10% 1000 Mg Administered 11/07/19 00:17 Dose 1,000 mg IV .STK-MED ONE Calcium Gluconate Confirm 11/07/19 00:35 Calcium Gluconate 10% 1000 Mg Administered 11/07/19 00:36 Dose 1,000 mg IV .STK-MED ONE Sodium Chloride Confirm 11/06/19 22:23 Sodium Chloride 0.9% 50 Ml Administered 11/06/19 22:24 Dose 50 mls @ ud IV .STK-MED ONE Sodium Chloride Confirm 11/07/19 00:41 Sodium Chloride 0.9% 100 Ml Ivpb Administered 11/07/19 00:42 Dose 100 mls @ ud IV .STK-MED ONE Lab/Rad Data: Laboratory Results 11/07/19 11/06/19 11/06/19 Range/Units 02:11 Unknown 23:32 Calcium 8.0 L 7.0 L (8.4-10.2) mg/dL Phosphorus (2.5-4.5) mg/dL Troponin I (0.000-0.034) ng/mL Influenza Type A Ag NEGATIVE (NEGATIVE) Influenza Type B Ag NEGATIVE (NEGATIVE) RSV (PCR) NEGATIVE (Negative) 11/06/19 11/06/19 Range/Units 22:20 22:20 Calcium (8.4-10.2) mg/dL Phosphorus 5.9 H (2.5-4.5) mg/dL Troponin I 0.014 (0.000-0.034) ng/mL Influenza Type A Ag (NEGATIVE) Influenza Type B Ag (NEGATIVE) RSV (PCR) (Negative) - Progress Progress: improved - Departure Departure Disposition: Home Clinical Impression: Hypocalcemia Condition: Stable Critical Care Time: No Referrals: VERO GUTIERREZ DO [Primary Care Provider] - Instructions: Hypocalcemia Prescriptions: Harsha/D3/Mag11/Zinc/Reception Specialist/Toan/Bor [Caltrate 600+D Plus Tablet] 2 each PO DAILY 30 Days #100 tablet
[2019-11-07 02:53] VITALS: BP 107/60; PULSE 70; O2SAT 94
== END 2019-11-07 02:53 | disposition home or self-care (01) ==
LOC: ED 21:25
DX: E83.51 Hypocalcemia (principal); Z79.899 Other long term (current) drug therapy
CPT/HCPCS: 36000; 36415; 80048; 81001; 82310; 82607; 83970; 84100; 84443; 84484; 85025; 87086; 87631; 93005; 96365; 96366; 99284; J0610

== ENCOUNTER 2021-05-07 15:08 | Emergency (ER) | payer MEDICARE ==
[2021-05-07] MEDS ORDERED: DUONEB 0.5-3 MG/3 ml Neb IH ONE ×3 (15:11→18:50)
[2021-05-07 15:27] LABS: A-aADO2 467; ABG HEMOGLOBIN 12.3; ABG POTASSIUM 5.1 (3.5-5.1); ARTERIAL BLD GAS O2 SATURATION 98.8 % (95-100); ARTERIAL BLOOD GAS BASE EXCESS 13.5 (-2.0-2.0); ARTERIAL BLOOD GAS FIO2 100 %; ARTERIAL BLOOD GAS PCO2 71 mmHg (35-45); ARTERIAL BLOOD GAS PO2 157 mmHg (75-100); ARTERIAL BLOOD GAS pH 7.38 (7.35-7.45); HGB O2 SAT 91.5 g/dF (94-100); Methhemoglobin 0.3 % (1.4-1.5)
[2021-05-07 15:28] LABS: ABG SITE RIGHT RADIAL; ALLEN TEST OK? YES; CARBOXYHEMOGLOBIN 7.1 % THgb (0.0-6.9)
[2021-05-07 15:29] LABS: Absolute Neutrophil Ct (ANC) 6.15 (1.4-6.9); BASOPHIL % 0.6 % (0.0-0.4); Basophil (Absolute #) 0.05 (0-0.4); Eosinophil % 0.6 % (0.00-5.0); Eosinophil (Absolute #) 0.05 (0-0.5); Hemoglobin 12.6 gm/dl (12.0-16.0); Lymphocyte (Absolute #) 0.86 (1.0-4.6); Lymphocytes % 10.9 % (24.0-44.0); Mean Cell Volume 80.2 fl (78-100); Mean Corpuscular Hemoglobin 22.5 pg (26-32); Monocytes % 10.1 % (0.0-12.0); Neutrophil % 77.8 % (36.0-66.0); Platelet Count 173 K/mm3 (150-450); Red Blood Count 5.61 M/mm3 (4.1-5.4); Red Cell Distribution Width 23.3 % (11.5-14.0); White Blood Count 7.9 K/mm3 (4.0-10.5)
[2021-05-07 15:35] LABS: INR 1.16 (0.8-3.0); PROTIME 13.7 SECONDS (9.4-12.5)
[2021-05-07 15:37] LABS: PTT 30.1 SECONDS (25.1-36.5)
[2021-05-07 15:48] LABS: ALKALINE PHOSPHATASE 99 U/L (38-126); BLOOD UREA NITROGEN 16 mg/dL (7-17); CHLORIDE 73 mmol/L (98-107); Calcium 6.3 mg/dL (8.4-10.2); Creatinine 1 0.84 mg/dL (0.52-1.04); EST GLOMERULAR FILTRATION RATE > 60.0 ML/MIN; Glucose 204 mg/dL (74-106); NT PRO BNP 7750 pg/mL (0-900); Potassium 5.4 mmol/L (3.5-5.1); SGOT/AST 45 U/L (14-36); SGPT/ALT 20 U/L (0-35); SODIUM 122 mmol/L (137-145); Total Protein 7.2 g/dL (6.3-8.2)
[2021-05-07 16:00] LABS: Carbon Dioxide 34 mmol/L (22-30)
[2021-05-07 16:02] LABS: ANION GAP 20.4 MEQ/L (5-15)
--- NOTE | 2021-05-07 16:10 | ERPHSYRPT ---
- History of Present Illness Source: EMS Exam Limitations: clinical condition Patient Subjective Stated Complaint: poor historian bipap- states she has been sick since february after she recieved COVID vaccine Triage Nursing Assessment: PAtient presents to ED via EMS short of breath, bilateral lower leg edema, bipap setting 14/6 110%, skin pink, hot, alert and oriented at this time, expiratory wheezes Physician History: 65 yo wf who is 3L O2 dep at home presents per EMS in mild respiratory distress. Pt has a h/o COPD/3L O2 dep at home. When EMS arrived, pt did not have O2 on and sats in 50's. EMS gave 125mg IV Solumedrol/Duoneb and placed pt on Bipap. Pt still smokes 1ppd. She has had increasing dyspnea over last 2 days w a mild cough. Pt denies fever/chest pain. Sats in low 90's upon ER arrival, but they increased to mid 90's after being placed on our Bipap and duoneb. Timing/Duration: other (2 days) Severity of Dyspnea-Max: severe Severity of Dyspnea-Current: moderate Possible Cause: occasional episodes Modifying Factors: Improves With: exertion Associated Symptoms: wheezing, painful breathing, productive cough, No chest pain/discomfort, No edema, No fever, No insomnia, No loss of appetite, No lightheadedness, No weakness, No ankle swelling, No chills, No hemoptysis, No calf pain, No dizziness, No heaviness, No heart racing, No lightheadedness, No leg swelling, No muscle spasms feet, No muscle spasms hands, No sweating, No tightness Allergies/Adverse Reactions: cephalexin [From Keflex] Allergy (Verified 05/07/21 15:51) codeine Allergy (Verified 05/07/21 15:51) erythromycin base Allergy (Verified 05/07/21 15:51) metronidazole [From Flagyl] Allergy (Verified 05/07/21 15:51) nitrofurantoin [From Macrobid] Allergy (Verified 05/07/21 15:51) Home Medications: Albuterol 2.5 mg/3 ml Neb [Proventil 2.5 mg/3 ml Neb] 3 ml QID 07/04/19 [History] Albuterol Sulfate [Proair Hfa] 2 puff BID 07/04/19 [History] Calcitriol 0.25 mg DAILY 07/04/19 [History] Carvedilol [Coreg] 12.5 mg DAILY 07/04/19 [History] Cetirizine HCl [Zyrtec] 10 mg DAILY 07/04/19 [History] Duloxetine HCl [Cymbalta] 60 mg DAILY 07/04/19 [History] Esomeprazole Magnesium [Nexium] 40 mg DAILY 07/04/19 [History] Fluticasone Propionate [Flovent Hfa] 12 gm DAILY 07/04/19 [History] Isosorbide Mononitrate 30 mg [Imdur 30 MG] 30 mg DAILY 07/04/19 [History] Levothyroxine Sodium [Synthroid] 137 mcg DAILY 07/04/19 [History] Montelukast Sodium 10 mg [Singulair 10 MG] 10 mg DAILY 07/04/19 [History] Multivitamin [Multi-Vitamin Daily] 1 ea DAILY 07/04/19 [History] Potassium Citrate [Potassium Citrate ER] 10 meq DAILY 07/04/19 [History] Rosuvastatin Calcium 20 mg DAILY 07/04/19 [History] Aspirin EC 81 mg [Ecotrin 81 mg] 81 mg PO DAILY 05/07/21 [History] Buspirone HCl 5 mg [Buspar 5 mg] 10 mg PO TID 05/07/21 [History] Glipizide Xl 10 mg [Glucotrol Xl 10 MG] 10 mg PO DAILY 05/07/21 [History] Linagliptin [Tradjenta] 5 mg PO DAILY 05/07/21 [History] Losartan Potassium 50 mg [Cozaar 50 MG] 100 mg PO DAILY 05/07/21 [History] Methocarbamol 500 mg [Robaxin 500 MG] 750 mg PO TID 05/07/21 [History] Prednisone 5 mg [Deltasone 5 mg] 5 mg PO DAILY 05/07/21 [History] Pregabalin 50 mg [Lyrica 50MG] 75 mg PO BID 05/07/21 [History] Torsemide 20 mg [Demadex 20 mg] 20 mg PO DAILY 05/07/21 [History] Trospium Chloride 20 mg PO BID 05/07/21 [History] Venlafaxine HCl ER 75 mg [Effexor XR 75 MG] 75 mg PO DAILY 05/07/21 [History] Hx Tetanus, Diphtheria Vaccination/Date Given: No Hx Influenza Vaccination/Date Given: Yes Hx Pneumococcal Vaccination/Date Given: No Travel Risk - International Travel Have you traveled outside of the country in past 3 weeks: No - Coronavirus Screening Are you exhibiting any of the following symptoms?: No Close contact with a COVID-19 positive Pt in past 14-21 Days: No - Vaccine Status Have you recieved a Covid-19 vaccination: Yes Bed Worker: Unknown - Vaccination Dates Dates if Unknown: february Comment: Patient states she recieved vaccine in february - Review of Systems Constitutional: No Symptoms Eyes: No Symptoms Ears, Nose, & Throat: No Symptoms Respiratory: Cough, Dyspnea, Wheezing Cardiac: No Symptoms Abdominal/Gastrointestinal: No Symptoms Genitourinary Symptoms: No Symptoms Musculoskeletal: No Symptoms Skin: No Symptoms Neurological: No Symptoms Psychological: No Symptoms Endocrine: No Symptoms Hematologic/Lymphatic: No Symptoms Immunological/Allergic: No Symptoms - Past Medical History Pertinent Past Medical History: Yes Neurological History: No Pertinent History Cardiac History: High Cholesterol, Hypertension Respiratory History: COPD, Emphysema Endocrine Medical History: Diabetes Type II, Hypothyroidism Musculoskeletal History: Arthritis GI Medical History: Diverticulitis, Other History: No Pertinent History Psycho-Social History: Anxiety, Depression Female Reproductive Disorders: No Pertinent History - Past Surgical History Past Surgical History: Yes Neuro Surgical History: Neurological Surgery Cardiac: Cardiac Catheterization Respiratory: Lobectomy Gastrointestinal: Cholecystectomy, Colon Resection Genitourinary: Kidney Transplant Musculoskeletal: Orthopedic Surgery Female Surgical History: Tubal Ligation Other Surgical History: left shoulder,thyroid removed - Social History Smoking Status: Current every day smoker How long have you smoked: 50 YEARS Exposure to second hand smoke: Yes Drug Use: none Patient Lives Alone: No Significant Family History: no pertinent family hx - Nursing Vital Signs Nursing Vital Signs: Initial Vital Signs Temperature 97.4 F 05/07/21 15:09 Pulse Rate 79 05/07/21 15:09 Respiratory Rate 23 05/07/21 15:09 Blood Pressure 123/74 05/07/21 15:09 O2 Sat by Pulse Oximetry 94 L 05/07/21 15:09 Pain Scale Pain Intensity 0 - Physical Exam General Appearance: mild distress Eye Exam: PERRL/EOMI, eyes nml inspection Ears, Nose, Throat Exam: hearing grossly normal, normal ENT inspection Neck Exam: normal inspection, non-tender, supple, full range of motion, No Brudzinski, No Kernig's, No meningismus Respiratory Exam: respiratory distress (Mild, on Bipap) Cardiovascular/Chest Exam: regular rate/rhythm, No murmur, No edema Abdominal/Gastrointestinal Exam: soft, normal bowel sounds, No tenderness Extremity Exam: non-tender, normal range of motion, normal inspection, normal capillary refill, no calf tenderness, no pedal edema Peripheral Pulses Exam: carotid (R): 2+, carotid (L): 2+ Neurologic Exam: alert, oriented x 3, cooperative, nursing unit clerk II-XII nml as tested, normal mood/affect, sensation nml, No motor deficits, No sensory deficit Skin Exam: normal color, warm, dry Lymphatic Exam: No adenopathy SpO2 Interpretation: normal SpO2: 95 O2 Delivery: Room Air - Course EKG Interpreted by Me: RATE (NSR/R80/Prolonged QTc/Flat T wavbes/No acute ST segment changes) - Radiology Exams Chest X-ray Interpretation: Discussed w/ radiologist (Cardiomegaly/pulmonary edema) - CT Exams Chest CT Interpretation: Discussed w/radiologist (No PE/Cardiomegaly/Pulmonary vascular congestion) Ordered Tests: Active Orders 24 hr Category Date Time Status Cost Analyst STAT Care 05/07/21 16:26 Completed EKG-ER Only STAT Care 05/07/21 16:26 Completed Reeder [Catheter-[place] Reeder] STAT Care 05/07/21 16:27 Completed IV Insertion STAT Care 05/07/21 16:26 Completed IV Insertion-2nd Peripheral STAT Care 05/07/21 16:26 Completed CHEST 1 VIEW (PORTABLE) Stat Exams 05/07/21 15:11 Completed CHEST WITH CONTRAST [CT] Stat Exams 05/07/21 16:40 Taken ABG [ARTERIAL BLOOD GASES] Stat Lab 05/07/21 15:20 Completed ABG [ARTERIAL BLOOD GASES] Stat Lab 05/07/21 16:45 Completed ABG [ARTERIAL BLOOD GASES] Stat Lab 05/07/21 17:50 Completed ABG [ARTERIAL BLOOD GASES] Stat Lab 05/07/21 18:41 Completed CBC W DIFF Stat Lab 05/07/21 15:14 Completed CMP Stat Lab 05/07/21 15:14 Completed CULTURE,URINE Stat Lab 05/07/21 16:27 Ordered D-DIMER QUANTITATIVE Stat Lab 05/07/21 15:14 Completed NT PRO BNP Stat Lab 05/07/21 15:14 Completed PROTIME WITH INR Stat Lab 05/07/21 15:14 Completed PTT Stat Lab 05/07/21 15:14 Completed TROPONIN Q3H Lab 05/07/21 15:14 Completed TROPONIN Q3H Lab 05/07/21 17:40 Completed UA W/RFX UR CULTURE Stat Lab 05/07/21 16:29 Completed BiPap/CPAP STAT RT 05/07/21 15:37 Completed Respiratory Therapy Assessment DAILY RT 05/07/21 15:37 Completed Medication Summary Discontinued Medications Generic Name Dose Route Start Last Admin Trade Name Freq PRN Reason Stop Dose Admin Albuterol/Ipratropium Confirm 05/07/21 15:11 Duoneb 0.5-3 Mg/3 Ml Neb Administered 05/07/21 15:12 Dose 3 ml IH .STK-MED ONE Albuterol/Ipratropium 3 ml 05/07/21 15:18 05/07/21 15:14 Duoneb 0.5-3 Mg/3 Ml Neb IH 05/07/21 15:19 3 ml STAT ONE Administration Albuterol/Ipratropium Confirm 05/07/21 18:50 Duoneb 0.5-3 Mg/3 Ml Neb Administered 05/07/21 18:51 Dose 3 ml IH .STK-MED ONE Furosemide 40 mg 05/07/21 16:15 05/07/21 16:22 Lasix 40 Mg/4 Ml IV 05/07/21 16:16 40 mg STAT ONE Administration Furosemide Confirm 05/07/21 16:16 Lasix 40 Mg/4 Ml Administered 05/07/21 16:17 Dose 40 mg .ROUTE .STK-MED ONE Furosemide 40 mg 05/07/21 18:27 05/07/21 18:42 Lasix 40 Mg/4 Ml IV 05/07/21 18:28 40 mg STAT ONE Administration Furosemide Confirm 05/07/21 18:41 Lasix 40 Mg/4 Ml Administered 05/07/21 18:42 Dose 40 mg .ROUTE .BigBadK-MED ONE Lab/Rad Data: Laboratory Result Diagrams 05/07/21 15:14 05/07/21 15:14 Laboratory Results 05/07/21 05/07/21 05/07/21 Range/Units 18:41 17:50 17:40 WBC (4.0-10.5) K/mm3 RBC (4.1-5.4) M/mm3 Hgb (12.0-16.0) gm/dl Hct (35-47) % MCV (78-100) fl MCH (26-32) pg MCHC (32-36) g/dl RDW (11.5-14.0) % Plt Count (150-450) K/mm3 Gran % (36.0-66.0) % Eos # (Auto) (0-0.5) Absolute Lymphs (auto) (1.0-4.6) Absolute Monos (auto) (0.0-1.3) Lymphocytes % (24.0-44.0) % Monocytes % (0.0-12.0) % Eosinophils % (0.00-5.0) % Basophils % (0.0-0.4) % Absolute Granulocytes (1.4-6.9) Basophils # (0-0.4) PT (9.4-12.5) SECONDS INR (0.8-3.0) APTT (25.1-36.5) SECONDS D-Dimer (215-500) ng/mL Puncture Site RIGHT BRACHIAL RIGHT RADIAL pCO2 84 H* 83 H* (35-45) mmHg pO2 99 75 (75-100) mmHg Base Excess 16.4 H 14.9 H (-2.0-2.0) O2 Saturation 91.5 L 88.9 L (94-100) g/dF ABG pH 7.35 7.34 L (7.35-7.45) ABG HCO3 46.4 H* 44.8 H* (22-28) ABG O2 Sat (Measured) 97.2 95.3 (95-100) % Silas Test YES YES A-a Gradient -54 178 a/A Ratio 2.20 0.30 Hemoglobin 12.6 12.2 Carboxyhemoglobin 5.3 5.9 (0.0-6.9) % THgb Methemoglobin 0.6 L 0.8 L (1.4-1.5) % Temperature 37.0 37.0 C POC O2 Flow Rate 50 50 % Vent Mode AVAPS BiPAP Vent Rate 20 /MIN Tidal Volume 550 cc Inspiratory BiPAP 14 Expiratory BiPAP 6 Sodium (137-145) mmol/L Potassium 4.7 5.0 (3.5-5.1) mmol/L Chloride (98-107) mmol/L Carbon Dioxide (22-30) mmol/L Anion Gap (5-15) MEQ/L BUN (7-17) mg/dL Creatinine (0.52-1.04) mg/dL Estimated GFR ML/MIN Glucose (74-106) mg/dL Calcium (8.4-10.2) mg/dL Total Bilirubin (0.2-1.3) mg/dL AST (14-36) U/L ALT (0-35) U/L Alkaline Phosphatase (38-126) U/L Troponin I 0.054 H* (0.000-0.034) ng/mL NT-Pro-B Natriuret Pep (0-900) pg/mL Serum Total Protein (6.3-8.2) g/dL Albumin (3.5-5.0) g/dL Urine Color (YELLOW) Urine Appearance (CLEAR) Urine pH (5-6) Ur Specific [place] (1.005-1.025) Urine Protein (Negative) Urine Ketones (NEGATIVE) Urine Blood (0-5) Jorge Luis/ul Urine Nitrite (NEGATIVE) Urine Bilirubin (NEGATIVE) Urine Urobilinogen (0-1) mg/dL Ur Leukocyte Esterase (NEGATIVE) Urine WBC (Auto) (0-5) /HPF Urine RBC (Auto) (0-2) /HPF U Epithel Cells (Auto) (FEW) /HPF Urine Bacteria (Auto) (NEGATIVE) /HPF Urine Culture Reflexed (NO) Urine Glucose (NEGATIVE) mg/dL Slides for Path Review 05/07/21 05/07/21 05/07/21 Range/Units 16:45 16:29 15:20 WBC (4.0-10.5) K/mm3 RBC (4.1-5.4) M/mm3 Hgb (12.0-16.0) gm/dl Hct (35-47) % MCV (78-100) fl MCH (26-32) pg MCHC (32-36) g/dl RDW (11.5-14.0) % Plt Count (150-450) K/mm3 Gran % (36.0-66.0) % Eos # (Auto) (0-0.5) Absolute Lymphs (auto) (1.0-4.6) Absolute Monos (auto) (0.0-1.3) Lymphocytes % (24.0-44.0) % Monocytes % (0.0-12.0) % Eosinophils % (0.00-5.0) % Basophils % (0.0-0.4) % Absolute Granulocytes (1.4-6.9) Basophils # (0-0.4) PT (9.4-12.5) SECONDS INR (0.8-3.0) APTT (25.1-36.5) SECONDS D-Dimer (215-500) ng/mL Puncture Site LEFT RADIAL RIGHT RADIAL pCO2 80 H* 71 H* (35-45) mmHg pO2 140 H* 157 H* (75-100) mmHg Base Excess 14.6 H 13.5 H (-2.0-2.0) O2 Saturation 91.9 L 91.5 L (94-100) g/dF ABG pH 7.35 7.38 (7.35-7.45) ABG HCO3 44.2 H* 42.0 H* (22-28) ABG O2 Sat (Measured) 98.1 98.8 (95-100) % Silas Test YES YES A-a Gradient 330 467 a/A Ratio 0.30 0.25 Hemoglobin 12.4 12.3 Carboxyhemoglobin 5.8 7.1 H* (0.0-6.9) % THgb Methemoglobin 0.5 L 0.3 L (1.4-1.5) % Temperature 37.0 37.0 C POC O2 Flow Rate 80 100 % Vent Mode BiPAP Vent Rate /MIN Tidal Volume cc Inspiratory BiPAP 14 14 Expiratory BiPAP 6 6 Sodium (137-145) mmol/L Potassium 5.4 H 5.1 (3.5-5.1) mmol/L Chloride (98-107) mmol/L Carbon Dioxide (22-30) mmol/L Anion Gap (5-15) MEQ/L BUN (7-17) mg/dL Creatinine (0.52-1.04) mg/dL Estimated GFR ML/MIN Glucose (74-106) mg/dL Calcium (8.4-10.2) mg/dL Total Bilirubin (0.2-1.3) mg/dL AST (14-36) U/L ALT (0-35) U/L Alkaline Phosphatase (38-126) U/L Troponin I (0.000-0.034) ng/mL NT-Pro-B Natriuret Pep (0-900) pg/mL Serum Total Protein (6.3-8.2) g/dL Albumin (3.5-5.0) g/dL Urine Color YELLOW (YELLOW) Urine Appearance CLEAR (CLEAR) Urine pH 6.0 (5-6) Ur Specific [place] 1.010 (1.005-1.025) Urine Protein 30 (Negative) Urine Ketones NEGATIVE (NEGATIVE) Urine Blood NEGATIVE (0-5) Jorge Luis/ul Urine Nitrite NEGATIVE (NEGATIVE) Urine Bilirubin NEGATIVE (NEGATIVE) Urine Urobilinogen NEGATIVE (0-1) mg/dL Ur Leukocyte Esterase NEGATIVE (NEGATIVE) Urine WBC (Auto) NONE (0-5) /HPF Urine RBC (Auto) NONE (0-2) /HPF U Epithel Cells (Auto) NONE (FEW) /HPF Urine Bacteria (Auto) NONE (NEGATIVE) /HPF Urine Culture Reflexed ORDERED SEPARATELY (NO) Urine Glucose NEGATIVE (NEGATIVE) mg/dL Slides for Path Review 05/07/21 05/07/21 05/07/21 Range/Units 15:14 15:14 15:14 WBC (4.0-10.5) K/mm3 RBC (4.1-5.4) M/mm3 Hgb (12.0-16.0) gm/dl Hct (35-47) % MCV (78-100) fl MCH (26-32) pg MCHC (32-36) g/dl RDW (11.5-14.0) % Plt Count (150-450) K/mm3 Gran % (36.0-66.0) % Eos # (Auto) (0-0.5) Absolute Lymphs (auto) (1.0-4.6) Absolute Monos (auto) (0.0-1.3) Lymphocytes % (24.0-44.0) % Monocytes % (0.0-12.0) % Eosinophils % (0.00-5.0) % Basophils % (0.0-0.4) % Absolute Granulocytes (1.4-6.9) Basophils # (0-0.4) PT 13.7 H (9.4-12.5) SECONDS INR 1.16 (0.8-3.0) APTT 30.1 (25.1-36.5) SECONDS D-Dimer 782 H* (215-500) ng/mL Puncture Site pCO2 (35-45) mmHg pO2 (75-100) mmHg Base Excess (-2.0-2.0) O2 Saturation (94-100) g/dF ABG pH (7.35-7.45) ABG HCO3 (22-28) ABG O2 Sat (Measured) (95-100) % Silas Test A-a Gradient a/A Ratio Hemoglobin Carboxyhemoglobin (0.0-6.9) % THgb Methemoglobin (1.4-1.5) % Temperature C POC O2 Flow Rate % Vent Mode Vent Rate /MIN Tidal Volume cc Inspiratory BiPAP Expiratory BiPAP Sodium (137-145) mmol/L Potassium (3.5-5.1) mmol/L Chloride (98-107) mmol/L Carbon Dioxide (22-30) mmol/L Anion Gap (5-15) MEQ/L BUN (7-17) mg/dL Creatinine (0.52-1.04) mg/dL Estimated GFR ML/MIN Glucose (74-106) mg/dL Calcium (8.4-10.2) mg/dL Total Bilirubin (0.2-1.3) mg/dL AST (14-36) U/L ALT (0-35) U/L Alkaline Phosphatase (38-126) U/L Troponin I 0.037 H* (0.000-0.034) ng/mL NT-Pro-B Natriuret Pep (0-900) pg/mL Serum Total Protein (6.3-8.2) g/dL Albumin (3.5-5.0) g/dL Urine Color (YELLOW) Urine Appearance (CLEAR) Urine pH (5-6) Ur Specific [place] (1.005-1.025) Urine Protein (Negative) Urine Ketones (NEGATIVE) Urine Blood (0-5) Jorge Luis/ul Urine Nitrite (NEGATIVE) Urine Bilirubin (NEGATIVE) Urine Urobilinogen (0-1) mg/dL Ur Leukocyte Esterase (NEGATIVE) Urine WBC (Auto) (0-5) /HPF Urine RBC (Auto) (0-2) /HPF U Epithel Cells (Auto) (FEW) /HPF Urine Bacteria (Auto) (NEGATIVE) /HPF Urine Culture Reflexed (NO) Urine Glucose (NEGATIVE) mg/dL Slides for Path Review 05/07/21 05/07/21 Range/Units 15:14 15:14 WBC 7.9 (4.0-10.5) K/mm3 RBC 5.61 H (4.1-5.4) M/mm3 Hgb 12.6 (12.0-16.0) gm/dl Hct 45.0 (35-47) % MCV 80.2 (78-100) fl MCH 22.5 L (26-32) pg MCHC 28.0 L (32-36) g/dl RDW 23.3 H (11.5-14.0) % Plt Count 173 (150-450) K/mm3 Gran % 77.8 H (36.0-66.0) % Eos # (Auto) 0.05 (0-0.5) Absolute Lymphs (auto) 0.86 L (1.0-4.6) Absolute Monos (auto) 0.80 (0.0-1.3) Lymphocytes % 10.9 L (24.0-44.0) % Monocytes % 10.1 (0.0-12.0) % Eosinophils % 0.6 (0.00-5.0) % Basophils % 0.6 (0.0-0.4) % Absolute Granulocytes 6.15 (1.4-6.9) Basophils # 0.05 (0-0.4) PT (9.4-12.5) SECONDS INR (0.8-3.0) APTT (25.1-36.5) SECONDS D-Dimer (215-500) ng/mL Puncture Site pCO2 (35-45) mmHg pO2 (75-100) mmHg Base Excess (-2.0-2.0) O2 Saturation (94-100) g/dF ABG pH (7.35-7.45) ABG HCO3 (22-28) ABG O2 Sat (Measured) (95-100) % Silas Test A-a Gradient a/A Ratio Hemoglobin Carboxyhemoglobin (0.0-6.9) % THgb Methemoglobin (1.4-1.5) % Temperature C POC O2 Flow Rate % Vent Mode Vent Rate /MIN Tidal Volume cc Inspiratory BiPAP Expiratory BiPAP Sodium 122 L (137-145) mmol/L Potassium 5.4 H (3.5-5.1) mmol/L Chloride 73 L (98-107) mmol/L Carbon Dioxide 34 H (22-30) mmol/L Anion Gap 20.4 H (5-15) MEQ/L BUN 16 (7-17) mg/dL Creatinine 0.84 (0.52-1.04) mg/dL Estimated GFR > 60.0 ML/MIN Glucose 204 H (74-106) mg/dL Calcium 6.3 L (8.4-10.2) mg/dL Total Bilirubin 0.80 (0.2-1.3) mg/dL AST 45 H (14-36) U/L ALT 20 (0-35) U/L Alkaline Phosphatase 99 (38-126) U/L Troponin I (0.000-0.034) ng/mL NT-Pro-B Natriuret Pep 7750 H (0-900) pg/mL Serum Total Protein 7.2 (6.3-8.2) g/dL Albumin 4.0 (3.5-5.0) g/dL Urine Color (YELLOW) Urine Appearance (CLEAR) Urine pH (5-6) Ur Specific [place] (1.005-1.025) Urine Protein (Negative) Urine Ketones (NEGATIVE) Urine Blood (0-5) Jorge Luis/ul Urine Nitrite (NEGATIVE) Urine Bilirubin (NEGATIVE) Urine Urobilinogen (0-1) mg/dL Ur Leukocyte Esterase (NEGATIVE) Urine WBC (Auto) (0-5) /HPF Urine RBC (Auto) (0-2) /HPF U Epithel Cells (Auto) (FEW) /HPF Urine Bacteria (Auto) (NEGATIVE) /HPF Urine Culture Reflexed (NO) Urine Glucose (NEGATIVE) mg/dL Slides for Path Review YES - Progress Progress: improved Air Movement: fair Progress Note: 05/07/21 18:10 40mg IV Lasix 05/07/21 18:[address] Alvarez 05/07/21 18:36 Duoneb upon arrival per RT Pt oxygenating well on Bipap, but CO2 continued to rise. Settings adjusted accordingly 05/07/21 18:38 40mg additional IV Lasix 05/07/21 19:11 Pt diuresing well before transfer. CO2 steady at 84 before transfer w previous CO2 at 83. Pt seems to be becoming more awake and alert and w good diuresis after 2nd 40mg IV Lasix. Decided not to intubate pt before transfer as pt clinically stable and in NAD. Counseled pt/family regarding: lab results, diagnosis, rad results, smoking cessation - Departure Departure Disposition: Transfer Clinical Impression: CHF (congestive heart failure), NSTEMI (non-ST elevated myocardial infarction) Condition: Stable Critical Care Time: Yes Critical Care Time(excluding separately billable procedures): Critical 75-104 mins Referrals: BEAU JEREZ MD [Primary Care Provider] - Instructions: Heart Failure
[2021-05-07] MEDS ORDERED: Lasix 40 MG/4 ML IV ONE ×2 (16:15→18:27)
[2021-05-07] MEDS ORDERED: Lasix 40 MG/4 ML ONE ×2 (16:16→18:41)
--- NOTE | 2021-05-07 16:21 | XRAY ---
Indication: Dyspnea. Comparison: October 15, 2019. Portable chest now demonstrates cardiomegaly with diffuse pulmonary edema concerning for cardiac decompensation/CHF. Superimposed pneumonia not completely excluded. Bony thorax intact again with osteopenia and degenerative changes.
[2021-05-07 16:37] LABS: Appearance CLEAR (CLEAR); Bilirubin NEGATIVE (NEGATIVE); Blood NEGATIVE Ery/ul (0-5); Glucose NEGATIVE (NEGATIVE); Ketones NEGATIVE (NEGATIVE); Leukocyte Esterase NEGATIVE (NEGATIVE); Nitrite NEGATIVE (NEGATIVE); Protein,Urine Dip 30 (Negative); Urobilinogen NEGATIVE mg/dL (0-1)
[2021-05-07 16:49] LABS: Slide Review 1 YES
[2021-05-07 16:51] LABS: A-aADO2 330; ABG HEMOGLOBIN 12.4; ABG POTASSIUM 5.4 (3.5-5.1); ARTERIAL BLD GAS O2 SATURATION 98.1 % (95-100); ARTERIAL BLOOD GAS BASE EXCESS 14.6 (-2.0-2.0); ARTERIAL BLOOD GAS FIO2 80 %; ARTERIAL BLOOD GAS PO2 140 mmHg (75-100); ARTERIAL BLOOD GAS VENT MODE BiPAP; ARTERIAL BLOOD GAS pH 7.35 (7.35-7.45); CARBOXYHEMOGLOBIN 5.8 % THgb (0.0-6.9); HCO3- 44.2 (22-28); HGB O2 SAT 91.9 g/dF (94-100); Methhemoglobin 0.5 % (1.4-1.5)
[2021-05-07 16:52] LABS: ABG SITE LEFT RADIAL; ALLEN TEST OK? YES; ARTERIAL BLOOD GAS PCO2 80 mmHg (35-45)
[2021-05-07 17:53] LABS: A-aADO2 178; ABG HEMOGLOBIN 12.2; ARTERIAL BLD GAS O2 SATURATION 95.3 % (95-100); ARTERIAL BLOOD GAS BASE EXCESS 14.9 (-2.0-2.0); ARTERIAL BLOOD GAS FIO2 50 %; ARTERIAL BLOOD GAS PO2 75 mmHg (75-100); ARTERIAL BLOOD GAS VENT MODE BiPAP; ARTERIAL BLOOD GAS pH 7.34 (7.35-7.45); CARBOXYHEMOGLOBIN 5.9 % THgb (0.0-6.9); HCO3- 44.8 (22-28); HGB O2 SAT 88.9 g/dF (94-100); Methhemoglobin 0.8 % (1.4-1.5)
[2021-05-07 17:54] LABS: ABG SITE RIGHT RADIAL; ALLEN TEST OK? YES; ARTERIAL BLOOD GAS PCO2 83 mmHg (35-45)
[2021-05-07 18:34] VITALS: PULSE 80
[2021-05-07 19:02] LABS: A-aADO2 -54; ABG HEMOGLOBIN 12.6; ABG POTASSIUM 4.7 (3.5-5.1); ARTERIAL BLD GAS O2 SATURATION 97.2 % (95-100); ARTERIAL BLOOD GAS BASE EXCESS 16.4 (-2.0-2.0); ARTERIAL BLOOD GAS PO2 99 mmHg (75-100); ARTERIAL BLOOD GAS pH 7.35 (7.35-7.45); CARBOXYHEMOGLOBIN 5.3 % THgb (0.0-6.9); HCO3- 46.4 (22-28); HGB O2 SAT 91.5 g/dF (94-100); Methhemoglobin 0.6 % (1.4-1.5)
[2021-05-07 19:03] LABS: ARTERIAL BLOOD GAS PCO2 84 mmHg (35-45)
[2021-05-07 19:04] LABS: ABG SITE RIGHT BRACHIAL; ALLEN TEST OK? YES; ARTERIAL BLD GAS TIDAL VOLUME 550 cc; ARTERIAL BLOOD GAS VENT MODE AVAPS; ARTERIAL BLOOD GAS VENT RATE 20 /MIN
[2021-05-07 19:05] LABS: ARTERIAL BLOOD GAS FIO2 50 %
[2021-05-07 19:07] VITALS: BP 126/78
[2021-05-07 19:17] VITALS: O2SAT 95
--- NOTE | 2021-05-08 08:42 | XRAY ---
Indication: Short of breath. Elevated d-dimer. Multiple contiguous axial images obtained through the chest using 100 cc Isovue 370 contrast and PE protocol. Comparison: April 20, 2019. There is adequate opacification of the pulmonary arteries. However mild diffuse respiration artifact limits evaluation of the more distal lobar and segmental branches. No obvious central pulmonary embolus. Heart is now enlarged again with mitral and aortic valve calcifications. Aorta remains mildly arteriosclerotic without aneurysm/dissection. Stable tiny mediastinal and right hilar calcified nodes. No pathologic mediastinal/hilar lymphadenopathy. Lungs demonstrates new mild diffuse interstitial edema without effusion. There remains diffuse pulmonary emphysema with scattered fibrosis/scarring. No suspicious pulmonary mass/nodule or consolidation. Bony thorax intact again with mild degenerative changes. Limited upper abdomen again demonstrates mild fatty liver and splenic calcified granulomas. Impression: 1. Pulmonary embolus evaluation limited by respiration artifact. No obvious central pulmonary embolus. 2. New cardiomegaly and interstitial edema. Rule out mild/early cardiac decompensation/CHF. Superimposed pneumonia not completely excluded. 3. Incidental pulmonary emphysema, fatty liver, chronic bony findings, and old granulomatous disease.
== END 2021-05-07 19:12 | disposition short-term general hospital (02) ==
LOC: ED 15:08
DX: I50.9 Heart failure, unspecified (principal); I21.3 ST elevation (STEMI) myocardial infarction of unspecified site; J44.9 Chronic obstructive pulmonary disease, unspecified; Z79.899 Other long term (current) drug therapy; I10 Essential (primary) hypertension; E11.9 Type 2 diabetes mellitus without complications; E03.9 Hypothyroidism, unspecified
CPT/HCPCS: 36000; 36415; 36600; 51702; 71045; 71260; 80053; 81001; 82375; 82803; 83880; 84484; 85025; 85379; 85610; 85730; 87086; 93005; 93041; 94002; 94640; 96374; 96376; 99285; 99291; 99292; J1940; A9270-GY